=== PATIENT | female | born 1965 | race Caucasian/White ===

== ENCOUNTER 2018-07-21 21:30 | Emergency (ER) | payer OTHER ==
[~2018-07-21] VITALS: Ht 162.6 cm; Wt 83.9 kg
[2018-07-21] MEDS ORDERED: [UNRECOGNIZED DRUG - REMARK] (21:40)
[2018-07-21] MEDS ORDERED: [UNRECOGNIZED DRUG - REMARK] (21:40)
--- NOTE | 2018-07-21 21:45 | NUR ---
[employer] INTO INTERVIEW PATIENT
--- NOTE | 2018-07-21 22:30 | NUR ---
PATIENT INTERACTING WELL WITH FAMILY AT BEDSIDE. NO DISTRESS NOTED
--- NOTE | 2018-07-21 22:41 | NUR ---
AFTER TRIAGE PT WAS OFFERED WHEEL CHAIR OR HELP TO RM 5A , PT REFUSED. RM 5A WAS CLEANED PER EVS PRIOR TO PT ENTERING, PT WAS GUIDED TO GISSELLE. PT REQUESTED TO HAVE HER DAUGHTER BE BROUGHT IN FROM THE WAITING ROOM WHICH WAS PROVIDED. DAUGHTER WAS ANGRY. STATED PT TREATED BAD, AND ASK TO TALK TO NSG COOKER TENDER. NSG COOKER TENDER INFORMED.
--- NOTE | 2018-07-21 22:45 | NUR ---
PATIENT OUT OF UNIT FOR CT SCAN VIA GURNY
--- NOTE | 2018-07-21 23:00 | NUR ---
PATIENT BACK FROM CT SCAN WITH NO DISTRESS NOTED
[2018-07-22] MEDS ORDERED: ONDANSETRON ODT 4 MG TAB.RAPDIS ONE (00:57)
[2018-07-22] MEDS ORDERED: HYDROCODONE/APAP 5-325MG TABLET ONE (00:57)
[2018-07-22] MEDS ORDERED: HYDROCODONE/APAP 5-325MG TABLET PO ONE (01:00)
[2018-07-22] MEDS ORDERED: ONDANSETRON ODT 4 MG TAB.RAPDIS SL ONE (01:00)
--- NOTE | 2018-07-22 01:14 | NUR ---
Patient discharged to home in stable conditon WITH TAKING PATIENT HOME. Written and verbal after care instructions given. Patient/ verbalizes understanding of instructions. PATIENT PLACED ON WHEELCHAIR AND HELPED INTO PRIVATE VEHICLE WITH AND DAUGHTER. GAVE RX FOR MOTRIN 600MG QID
[2018-07-22 01:16] VITALS: BP 148/90
== END 2018-07-22 01:17 | disposition home or self-care (01) ==
LOC: ER 21:33
DX: R51 Headache (principal); M54.2 Cervicalgia; M25.511 Pain in right shoulder; M25.521 Pain in right elbow; R07.89 Other chest pain; M25.551 Pain in right hip; M25.561 Pain in right knee; M25.571 Pain in right ankle and joints of right foot; Z88.5 Allergy status to narcotic agent; Z88.8 Allergy status to other drugs, medicaments and biological substances; Z90.49 Acquired absence of other specified parts of digestive tract; Z90.710 Acquired absence of both cervix and uterus; W18.39XA Other fall on same level, initial encounter; Y93.89 Activity, other specified; Y92.89 Other specified places as the place of occurrence of the external cause; Y99.8 Other external cause status
CPT/HCPCS: 70450; 71045; 72125; 73030; 73080; 73502; 73610; A4663; Q0162